=== PATIENT | female | born 1955 | race Caucasian/White ===

== ENCOUNTER → 2016-12-14 | Day surgery (SDC) | payer MEDICARE, OTHER ==
[~2016-12-14] MED LIST: ACTONEL30 MG PO; AMLODIPINE BESYL5 MG PO; ASPIRIN81 M1 PO; CALCIUM + D 6001 TA1 PO; FOSAMAX70 MG PO; LIPITOR20 MG PO; MELOXICAM15 MG PO; MULTIPLE VITAMI1 T11 PO; TRIAMTERENE-HCT1 TA8 PO
--- NOTE | ~2016-12-14 | OR ---
Unit #: [id number] #: [id number] Patient: CICI TREJO [id number] [address] [place], [place] [address] [id number] O MR#: [id number] NAME: CICI TREJO ROOM: Date of Procedure: 12/14/2016 Admission Date: 12/14/2016 Surgeon: Liborio Stuart M.D. : 1955 Attending Physician: Liborio Stuart M.D. Primary Care Physician: Adithya Barron M.D. SURGERY CENTER OPERATIVE NOTE PROCEDURE PERFORMED Lumbar epidural steroid injection under x-ray guided needle placement. PREOPERATIVE DIAGNOSES 1. Acute lumbar radiculitis. 2. Spinal stenosis, lumbosacral spine. 3. Degenerative joint disease, lumbosacral spine. 4. Degenerative disk disease, lumbosacral spine. 5. Acute facet arthralgia, lumbosacral spine. 6. Facet arthrosis, lumbosacral spine. INDICATIONS FOR PROCEDURE The patient presents today with a month's long history of lumbar radicular pain as well as facet arthralgia pain secondary to her underlying degenerative processes. She is in possession of MRI report, which shows diffuse disease; however, disease most notably worse at the L4-L5 and L5-S1 levels. After discussion of the risks and benefits of proceeding today with lumbar approach epidural steroid injection with return this clinic in 3 weeks for a potential repeat on 01/04/2017, the patient agreed this would be the appropriate course of action. We also discussed potentially the need for the patient to require facet joint injections at some point during her treatment. DESCRIPTION OF PROCEDURE Following these discussions, the patient was taken to the operating room, where she was prepped and draped in a sterile manner. Standard monitors were applied. She refused all forms of sedation and lumbar epidural space accessed at the L4-L5 level using loss of resistance technique and x-ray guidance. Needle placement was confirmed with injection of 2 mL of Omnipaque, almost all dye flow was in the inferior direction. Following successful needle placement confirmation which required total x-ray time of 5 seconds, the patient received an injectate containing 4 mL normal saline and 80 mg of methylprednisolone. She tolerated this procedure well. She was discharged home with followup instructions, which include return to this clinic as described above. Dictated by... Korina Fraser/alessandra TD: 12/15/2016 02:39 Unit #: [id number] #: [id number] Patient: CICI TREJO JOB #: [id number] SURGERY CENTER OPERATIVE NOTE Page 1 of 1 X Grady Stuart MD X PROCEDURE OPERATIVE NOTE
== END | disposition home or self-care (01) ==
LOC: CCSC 09:26
DX: M47.27 Other spondylosis with radiculopathy, lumbosacral region (principal); M51.17 Intervertebral disc disorders with radiculopathy, lumbosacral region; M48.07 Spinal stenosis, lumbosacral region; M81.0 Age-related osteoporosis without current pathological fracture
CPT/HCPCS: J1040; J2250

== ENCOUNTER → 2017-01-04 | Day surgery (SDC) | payer MEDICARE, OTHER ==
--- NOTE | ~2017-01-04 | OR ---
Unit #: [id number] #: [id number] Patient: CICI TREJO [id number] [address] [place], [place] [address] [id number] O MR#: [id number] NAME: CICI TREJO ROOM: Date of Procedure: 01/04/2017 Admission Date: 01/04/2017 Surgeon: Liborio Stuart M.D. : 1955 Attending Physician: Liborio Stuart M.D. Primary Care Physician: Adithya Barron M.D. SURGERY CENTER OPERATIVE NOTE INDICATIONS FOR PROCEDURE The patient presents status post one previous L4-L5 lumbar epidural steroid injection for an acute radiculitis, which had failed to respond to conservative measures. She states she got good initial relief; however, relief was not initially complete nor it was completely long lasting as she has had some return of symptoms in a crescendo pattern since her initial injection. After discussing risks and benefits of proceeding today with second lumbar approach epidural steroid injection at this time at the L5-S1 where she also has disease, the patient agreed this would be the appropriate course of action. We also discussed referral to [facility] for potential radiofrequency ablation. She does have an L4-L5 and L5-S1 bilateral facet arthrosis which may be contributing to her pain. DESCRIPTION OF PROCEDURE After these discussions, the patient was taken to the operating room, where she was prepped and draped in a sterile manner. Standard monitors were applied. She refused all forms of sedation and lumbar epidural space accessed at the L5-S1 level using loss of resistance technique and x-ray guidance. Needle placement was confirmed with injection of 2 mL of Omnipaque. Total x-ray time was 4 seconds. Approximately 60% to 80% of dye flow was in the superior direction which was desired. Following the successful needle placement, the patient received an injectate containing 4 mL normal saline and 80 mg of methylprednisolone. She tolerated this procedure well. She was discharged home with followup instructions, which included the [facility] referral as mentioned above as well as return to this clinic as early as 04/21/2017 if we could be of further service to her. She was instructed if she was asymptomatic at that time to simply not keep that appointment and to follow up with us or her referring provider should she have further needed of our services. She was further instructed that she felt the pain relief from this injection and her [facility] visit was inadequate and then she was to return to her primary care or referring provider for potential referral for additional pain management procedures and/or surgical care. Dictated by... Korina Fraser/alessandra TD: 01/04/2017 23:37 JOB #: [id number] Unit #: [id number] #: [id number] Patient: GABRIELLA TREJOJOANIE Reynoso [facility] OPERATIVE NOTE Page 1 of 1 X Grady Stuart MD X PROCEDURE OPERATIVE NOTE
== END | disposition home or self-care (01) ==
LOC: CCSC 08:14
DX: M47.26 Other spondylosis with radiculopathy, lumbar region (principal); M47.27 Other spondylosis with radiculopathy, lumbosacral region; M81.0 Age-related osteoporosis without current pathological fracture
CPT/HCPCS: J1040; J2250

== ENCOUNTER → 2017-02-26 | Outpatient (CLI) | payer MEDICARE, OTHER ==
--- NOTE | ~2017-02-26 | MY11 ---
[facility] A Service of [facility] RADIOLOGY TEXT RESULTS PATIENT: CICI TREJO LOCATION: [facility] : 55 UNIT #: [id number] AGE: [address]: Adithya Barron MD SEX: F ORDER DR: [id number] [address] [address] [id number] O MR#: [id number] Acc #: [id number] NAME: CICI TREJO : 1955 SEX: F STUDY DATE/TIME: 02/26/2017 11:55 UNIT: [facility] ROOM: STUDY DESCRIPTION: MY Mammogram Screening Dig Carlos Attending Physician: Adithya Barron M.D. Referring Physician: Adithya Barron M.D. Ordering Physician: Adithya Barron M.D. Primary Care Physician: Adithya Barron M.D. MEDICAL IMAGING REPORT This report is preliminary unless electronic signature is present. EXAM Bilateral digital screening mammogram with CAD DATE 02/26/2017 HISTORY No personal or family history of breast cancer or current complaints. COMPARISON Bilateral screening mammogram 02/21/2016. Left breast digital diagnostic mammogram 07/19/2015, 10/19/2014. Bilateral screening mammogram 09/11/2014. FINDINGS CC and MLO views were obtained of each breast utilizing digital technique and reviewed with an FDA-approved CAD device. Heterogeneously dense fibroglandular tissue is present bilaterally which can limit sensitivity of mammography. A well-circumscribed less 1 cm nodule along the 6 o'clock axis in the left breast central third is unchanged since 09/11/2014, in keeping with a benign finding. No new or suspicious nodule, architectural distortion, or clustered microcalcification is seen. Benign-appearing round calcifications are seen within the subareolar left breast. No abnormal skin thickening or nipple retraction. IMPRESSION 1. Routine bilateral screening mammogram is recommended in 1 year. Patient's over the age of 40 are entered into a reminder system with target due date for the next mammogram. [facility] A Service of [facility] RADIOLOGY TEXT RESULTS PATIENT: CICI TREJO LOCATION: [facility] #: [id number] : 55 UNIT #: [id number] AGE: [address]: Adithya Barron MD SEX: F ORDER DR: BIRADS: 2 Benign findings Dictated by... Antonella Macias M.D. THIS IS AN ELECTRONICALLY VERIFIED REPORT Antonella Macias M.D. at 02/26/2017 4:35 PM Bri/neel TD: 02/26/2017 16:15 JOB #: [id number] MEDICAL IMAGING REPORT Page 1 of 1
== END | disposition home or self-care (01) ==
LOC: SMAM 11:23
DX: Z12.31 Encounter for screening mammogram for malignant neoplasm of breast (principal)
CPT/HCPCS: G0202

== ENCOUNTER → 2017-04-05 | Day surgery (SDC) | payer MEDICARE, OTHER | END | disposition home or self-care (01) | LOC: CCSC 11:53 | DX: M54.9 Dorsalgia, unspecified (principal); M81.0 Age-related osteoporosis without current pathological fracture; F17.210 Nicotine dependence, cigarettes, uncomplicated; Z53.9 Procedure and treatment not carried out, unspecified reason; Z79.82 Long term (current) use of aspirin; Z79.1 Long term (current) use of non-steroidal anti-inflammatories (NSAID); Z79.899 Other long term (current) drug therapy; Z98.51 Tubal ligation status; Z98.890 Other specified postprocedural states | CPT/HCPCS: J1040; J2250 ==

== ENCOUNTER → 2017-06-11 | Outpatient (CLI) | payer MEDICARE, OTHER ==
--- NOTE | ~2017-06-11 | CR151 ---
[facility] A Service of [facility] RADIOLOGY TEXT RESULTS PATIENT: CICI TREJO LOCATION: [facility] : 55 UNIT #: [id number] AGE: [address]: Iesha Friedman APRN SEX: F ORDER DR: [id number] [address] [address] [id number] O MR#: [id number] Acc #: [id number] NAME: CICI TREJO. : 1955 SEX: F STUDY DATE/TIME: 06/11/2017 9:55 UNIT: [facility] ROOM: STUDY DESCRIPTION: CR Hip Min 2 Views Rt Attending Physician: Iesha Friedman Aprn Referring Physician: Iesha Friedman Aprn Ordering Physician: Iesha Friedman Aprn Primary Care Physician: Adithya Barron M.D. MEDICAL IMAGING REPORT This report is preliminary unless electronic signature is present. EXAM Right hip series, 2 views, 06/11/2017. INDICATIONS 62-year-old female complaining of pain with walking bilaterally over the past year increasing pain symptoms over time. TECHNIQUE Frontal pelvis with frontal and frog views right hip performed. COMPARISON STUDIES No comparisons. FINDINGS Postop changes left groin region. There is mild degenerative change of the right hip. Small nonspecific calcification intimately associated with the femoral head may represent a spur or a soft tissue calcification superimposed over the right femoral head which is favored based upon imaging features. No acute fracture. Bony pelvis intact. There are degenerative changes of the right SI joint, symphysis pubis and lower lumbar spine. IMPRESSION 1. Mild degenerative change of the right hip. No acute fracture. 2. Probable soft tissue calcifications simulating a femoral spur. Dictated by... Jonnathan Oh M.D. THIS IS AN ELECTRONICALLY VERIFIED REPORT Jonnathan Oh M.D. at 06/12/2017 6:[address] [facility] A Service of [facility] RADIOLOGY TEXT RESULTS PATIENT: CICI TREJO LOCATION: [facility] : 55 UNIT #: [id number] AGE: [address]: Iesha Friedman APRN SEX: F ORDER DR: Hodan TD: 06/12/2017 00:19 JOB #: [id number] MEDICAL IMAGING REPORT Page 1 of 1
--- NOTE | ~2017-06-11 | CR150 ---
[facility] A Service [facility] RADIOLOGY TEXT RESULTS PATIENT: CICI TREJO LOCATION: [facility] : 55 UNIT #: [id number] AGE: [address]: Iesha Friedman APRN SEX: F ORDER DR: [id number] [address] [address] [id number] O MR#: [id number] Acc #: [id number] NAME: CICI TREJO. : 1955 SEX: F STUDY DATE/TIME: 06/11/2017 9:55 UNIT: [facility] ROOM: STUDY DESCRIPTION: CR Hip Min 2 Views Lt Attending Physician: Iesha Friedman Aprn Referring Physician: Iesha Friedman Aprn Ordering Physician: Iesha Friedman Aprn Primary Care Physician: Adithya Barron M.D. MEDICAL IMAGING REPORT This report is preliminary unless electronic signature is present. EXAM Left hip, 2 views; 06/11/2017. INDICATIONS 62-year-old female with pain in the pelvis and both hips for a year. Pain increasing over time. Pain to walk. TECHNIQUE Frontal pelvis with frog and frontal views left hip performed. COMPARISON No comparisons. FINDINGS Postop changes left groin region. There is mild degenerative change of the left hip. No acute fracture. Bony pelvis intact. There are also degenerative changes in the lower lumbar spine and in the SI joints, right greater than left. Faint vascular calcifications suspected in the pelvis. Mild degenerative change of the pubic symphysis. IMPRESSION 1. Osteopenia. Degenerative change of the left hip but no acute fracture. Dictated by... Jonnathan Oh M.D. THIS IS AN ELECTRONICALLY VERIFIED REPORT Jonnathan Oh M.D. at 06/12/2017 6:50 AM [facility] A Service [facility] RADIOLOGY TEXT RESULTS PATIENT: CICI TREJO LOCATION: [facility] : 55 UNIT #: [id number] AGE: [address]: Iesha Friedman APRN SEX: F ORDER DR: Hodan TD: 06/12/2017 00:09 JOB #: [id number] MEDICAL IMAGING REPORT Page 1 of 1
== END | disposition home or self-care (01) ==
LOC: SRAD 09:44
DX: M25.551 Pain in right hip (principal); M25.552 Pain in left hip; M16.0 Bilateral primary osteoarthritis of hip; M85.88 Other specified disorders of bone density and structure, other site
CPT/HCPCS: 73502